=== PATIENT | female | born 1985 | race Two or more races ===

== ENCOUNTER 2021-11-05 21:09 | Emergency (ER) | payer MEDICAID, OTHER ==
[~2021-11-05] VITALS: Ht 167.6 cm; Wt 63.5 kg
[2021-11-05 22:45] VITALS: BP 123/70
--- NOTE | 2021-11-05 22:59 | NUR ---
Patient eloped from facility. ER MD notified.
== END 2021-11-05 23:00 | disposition left against medical advice (07) ==
LOC: ER 21:11
DX: Z53.21 Procedure and treatment not carried out due to patient leaving prior to being seen by health care provider (principal)